=== PATIENT | male | born 1985 | race Caucasian/White ===

== ENCOUNTER → 2024-02-06 09:37 | Outpatient (REF) | payer BC, SELFPAY ==
--- NOTE | 2024-02-06 13:22 | EEG.RPT ---
Electroencephalogram Report
Recording
Date of EE02/06/24
Type of EEG: Routine
Length of EEG recordin mins
Done with Video Recording: Yes
Patient Status: Outpatient
Recording Conditions: Awake
Hyperventilation Performed: Yes
Photic Stimulation Performed: Yes
Report
METHODS
A 21 channel digitized electroencephalogram was performed at [facility]. The 10/20 international system of electrode placement was used. In addition to EEG, the patient was monitored for EKG. The duration of the recording was 65 minutes.
BACKGROUND
During the awake state, with the eyes closed, the background consisted of a normal amplitude, 11 Hertz posterior reactive rhythm that attenuated appropriately with eye opening. Beta activity was distributed diffusely with an anterior predominance.
There was a normal anterior-posterior voltage gradient. With eye opening the background activity changed to a low voltage mixture of alpha, beta, and occasional theta range frequencies. There were no significant asymmetries of background activity
noted.
HYPERVENTILATION
Hyperventilation resulted in no of the background activity but no appearance of abnormal activity.
PHOTIC STIMULATION
Photic stimulation using a step-skelton increase in photic frequency varying from 1-31 Hertz resulted in driving responses at various frequencies but no appearance of abnormal activity.
ABNORMAL EEG ACTIVITY
None
CLINICAL EVENTS
None
INTERPRETATION AND CLINICAL CORRELATION
This EEG is normal during the awake state as well as during the activation procedures of hyperventilation and photic stimulation. No seizures were noted during the recording. A normal EEG, in itself, does not rule out a diagnosis of epilepsy. If
clinical suspicion for seizure persists, a sleep-deprived and/or prolonged recording may be warranted.
== END ==
LOC: EEG 09:37
PROVIDERS: ATTENDING PHYSICIAN Psychiatry & Neurology Neurology; FAMILY PHYSICIAN Physician Assistant Medical
DX: R20.9 Unspecified disturbances of skin sensation (principal)
CPT/HCPCS: 95813

== ENCOUNTER 2024-03-22 20:29 | Emergency (ER) | payer BC, SELFPAY ==
[2024-03-22 20:47] VITALS: BP 112/80
[2024-03-22 20:55] VITALS: BMI 23.2
--- NOTE | 2024-03-22 20:57 | EDRN ---
Pt fell and hit R side of his head. Pt was in the bath, got up and felt nauseous and dizzy. Pt walked into the hallway 'next thing I knew I was on the floor and felt a huge lump on my head.' LOC less than 1 minute. Pt got up, walked into his
room and asked for help. Pt complains of head pain - no neck/back pain. Gait normal. No n/v, dizziness, visual disturbance. Pt feels 'woozy, dazed.'
[2024-03-22 21:03] VITALS: BP 108/78
--- NOTE | 2024-03-22 21:35 | ED.GENMED ---
History of Present Illness
General
Chief Complaint: Fainting/Passed Out
Source: patient
Exam Limitations: none
Time Seen by Provider: 03/22/24 21:24
Nursing documentation reviewed up to this point in time: agreed with
History of Present Illness
History of Present Illness:
Patient states he was sitting in hot bath for approx 30 minutes States he suddenly felt nauseated. He got out of tub and walked into vargas. States he then found self on floor. States he does not feel LOC was very long. Able to get self up,
ambulate to his room and call for help. Now complains of headache. He has a hematoma to his right forehead. Brought to ED by parents for eval. Denies fever/chills, n/v/d. No recent illness. Eating and drinking normally
Past History
Past History
ED Past Medical History: Psychiatric (Anxiety, ADHD, Depression, Panic attack) and Other (PE); Negative Asthma, HTN, Hypercholesterolemia or NIDDM
ED Past Surgical History: Orthopedic (Shoulder surgery) and Other (Bilateral inguinal hernia)
Social History
Tobacco: Former smoker
Alcohol: None
Personal: Single
Living: with family
Review of Systems
Review of Systems
Allergies reviewed?: Yes
All Other Systems: ROS reviewed and negative except as documented in HPI and ROS
Constitutional: Reports no symptoms
EENT: Reports no symptoms
Respiratory: Reports no symptoms
Cardiac: Reports no symptoms
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
: Reports no symptoms
Musculoskeletal: Reports neck pain
Skin: Reports other (hematoma to right forhead.)
Neurological: Reports headache
Psychiatric: Reports no symptoms
Phy Exam
General Physical Exam
General Presentation: well appearing and no apparent distress
General age: appears stated age
General Skin: warm and dry
General Habitus: normal
General Mental: alert
ENT Exam
ENT Exam: EOMI, TM's normal, neck supple and normocephalic
Eye Exam
Eye Exam: PERRL, EOMI and conjunctiva normal
Cardiovascular Exam
Cardiovascular Exam: regular rate/rhythm and no edema
Pulmonary Exam
Pulmonary Exam: lungs clear and no respiratory distress
Gastrointestinal Exam
Gastrointestinal Exam: normal bowel sounds, non tender, soft, no organomegaly and non distended
Neurological Exam
Neurological Exam: alert, oriented x3, CN II-XII intact, no motor deficits, no sensory deficits and speech normal
Ange Coma Scale
Eye Opening: Spontaneous
Verbal Response: Oriented
Motor Response: Obeys Commands
GCS Total Score: 15
Musculoskeletal Exam
Musculoskeletal Exam: full ROM and neuro vasc intact
Skin Exam
Skin Exam: normal color, warm/dry, no rash and other (large hematoma to right forehead.)
Psychiatric Exam
Psychiatric Exam: normal mood/affect
Course
Orders/Labs/Results
Orders:
Orders
03/22/24 20:49
Electrocardiogram (*1) Urgent
Reason for Study: Syncope
EKG- Treatment ONCE
03/22/24 21:33
Orthostatic VS- Treatment ONCE
03/22/24 21:34
CT Head W/o Iv Contrast Urgent
Comment:
Reason For Exam: trauma
Cervical Spine 4 or 5 Vw [CR Cervical Spine 4 Or 5 Vw] Urgent
Comment:
Reason For Exam: fall
03/22/24 21:50
Complete Blood Count/With Diff Urgent
Comprehensive Metabolic Panel Urgent
Abnormal Lab Results
03/22/24
21:50
RBC 3.71 L 10^6/uL
(4.70-6.10)
Hgb 12.7 L g/dL
(13.0-18.0)
Hct 34.6 L %
(39.0-52.0)
MCH 34.2 H pg
(27.0-31.0)
Absolute Monos (auto) 0.8 H 10^3/uL
(0.1-0.6)
Lymphocytes % 19.5 L %
(20.5-51.1)
Monocytes % 10.9 H %
(1.7-9.3)
BUN 22 H mg/dl
(9-20)
Glucose 108 H mg/dl
(70-99)
03/22/24 21:50
03/22/24 21:50
Vital Signs
Initial and Last Documented VS:
Initial Vital Signs
Temp Pulse Resp BP Pulse Ox
98.9 F 84 18 112/80 99
03/22/24 20:47 03/22/24 20:47 03/22/24 20:47 03/22/24 20:47 03/22/24 20:47
Last Documented Vital Signs
Temp Pulse Resp BP Pulse Ox
98.9 F 80 17 108/78 96
03/22/24 20:47 03/22/24 21:00 03/22/24 21:00 03/22/24 21:03 03/22/24 21:00
*Radiology
Radiology exam reviewed: radiology read reviewed
*Pulse Oximetry
Patient hypoxic: no
*Critical Care Note
Total Time (30-74mins, 75-104mins- exclusive of procedures): Not Applicable
ED Attending Note
-
Portions of this chart may have been created with voice recognition software.� Occasional wrong word or��sound alike� substitutions may have occurred due to the inherent limitations of voice recognition software.
Discharge Plan
Departure
Patient Disposition: Home (Routine Discharge)
Date of Disposition: 03/22/24
Time of Disposition: 22:27
Patient with high blood pressure during this ER visit?: No
Condition: Good
Covid-19: Not Applicable
Discharge Problem:
Head injury, Syncope
Instructions: Taking care of bruises, Head injury in adults, Syncope (Fainting) (DC)
Prescriptions:
No Action
melatonin 5 MG tablet
5 mg PO HSPRN PRN (Reason: Sleep)
gabapentin 900 mg Tablet Extended Release 24 Hr
900 mg PO TID
Referrals:
Dick Olguin MD [Family Provider] - Follow up in 2-3 days
Interventions
Interventions:
*Risk Screen - Suicide Last Done: 03/22/24 20:47
*General Assessment Last Done: 03/22/24 20:47
*Neglect/Abuse Screening Last Done: 03/22/24 20:47
ED- Fall Risk Assessment Last Done: 03/22/24 21:06
*ED COVID-19 Vaccine History Last Done: 03/22/24 22:37
*Nursing Disposition Last Done: 03/22/24 22:37
ED- Cardiac Assessment Last Done: 03/22/24 21:06
ED- Neurological Assessment Last Done: 03/22/24 21:06
Discharge Date and Time
Discharge Date/Time: 03/22/24 22:37
Print Language: LATVIAN
[2024-03-22 21:57] VITALS: BP 111/74; BP 112/78; BP 96/63; PULSE 81; PULSE 86
[2024-03-22 21:57] LABS: % Basophils 0.3 % (0-2); % Eosinophils 1.8 % (0-6); % Immature Granulocytes 0.3 % (0-0.5); % Lymphocytes 19.5 % (20.5-51.1); % Monocytes 10.9 % (1.7-9.3); % Neutrophils 67.2 % (42.2-75.2); Absolute Eosinophils 0.1 10^3/uL (0-0.7); Absolute Lymphocytes 1.5 10^3/uL (1.2-3.4); Absolute Monocytes 0.8 10^3/uL (0.1-0.6); Absolute Neutrophils 5.2 10^3/uL (1.4-6.5); Hematocrit 34.6 % (39.0-52.0); Hemoglobin 12.7 g/dL (13.0-18.0); Mean Corp Hgb Conc. 36.7 g/dL (33.0-37.0); Mean Corpuscular Hgb 34.2 pg (27.0-31.0); Mean Corpuscular Volume 93.3 fL (80.0-94.0); Mean Platelet Volume 9.2 fL (7.4-10.4); Nucleated Red Blood Cells % 0 % (-); Platelet Count 212 10^3/uL (130-400); Red Blood Cell Count 3.71 10^6/uL (4.70-6.10); Red Cell Dist. Width 11.6 % (11.5-14.5); White Blood Cell Count 7.7 10^3/uL (4.8-10.8)
[2024-03-22 22:20] LABS: ALT (SGPT) 18 U/L (0-50); AST (SGOT) 22 U/L (17-59); Albumin 4.4 g/dl (3.5-5.0); Alkaline Phosphatase 42 U/L (38-126); Blood Urea Nitrogen 22 mg/dl (9-20); Calcium 9.4 mg/dl (8.4-10.2); Carbon Dioxide 26 mmol/L (22-30); Chloride 103 mmol/L (98-107); Estimated Creatinine Clearance 119 ml/min; Glucose 108 mg/dl (70-99); Potassium 4.2 mmol/L (3.5-5.1); Sodium 139 mmol/L (135-145); Total Bilirubin 0.5 mg/dl (0.2-1.3); Total Protein 6.7 g/dl (6.3-8.2); eGFR > 60.00
== END 2024-03-22 22:37 | disposition home or self-care (01) ==
LOC: EMR 20:29
PROVIDERS: Nurse Practitioner; EMERGENCY PHYSICIAN Emergency Medicine; FAMILY PHYSICIAN Family Medicine
DX: R55 Syncope and collapse (principal); S09.90XA Unspecified injury of head, initial encounter; W19.XXXA Unspecified fall, initial encounter; Z87.891 Personal history of nicotine dependence
CPT/HCPCS: 99285; 70450; 72050; 80053; 85025; 93005

== ENCOUNTER 2024-03-28 15:28 | Emergency (ER) | payer BC, SELFPAY ==
[2024-03-28 15:29] VITALS: BP 121/83
[2024-03-28 15:40] VITALS: BP 127/88
[2024-03-28 15:55] VITALS: BMI 22.9
[2024-03-28 16:00] VITALS: BP 101/73
[2024-03-28 16:12] LABS: % Basophils 0.2 % (0-2); % Eosinophils 2.1 % (0-6); % Immature Granulocytes 0.2 % (0-0.5); % Monocytes 9.6 % (1.7-9.3); % Neutrophils 57.9 % (42.2-75.2); Absolute Eosinophils 0.1 10^3/uL (0-0.7); Absolute Lymphocytes 1.5 10^3/uL (1.2-3.4); Absolute Monocytes 0.5 10^3/uL (0.1-0.6); Hematocrit 34.5 % (39.0-52.0); Hemoglobin 12.4 g/dL (13.0-18.0); Mean Corp Hgb Conc. 35.9 g/dL (33.0-37.0); Mean Corpuscular Hgb 33.1 pg (27.0-31.0); Mean Platelet Volume 9.4 fL (7.4-10.4); Nucleated Red Blood Cells % 0 % (-); Platelet Count 229 10^3/uL (130-400); Red Blood Cell Count 3.75 10^6/uL (4.70-6.10); Red Cell Dist. Width 11.3 % (11.5-14.5); White Blood Cell Count 5.1 10^3/uL (4.8-10.8)
--- NOTE | 2024-03-28 16:12 | ED.GENMED ---
History of Present Illness
General
Chief Complaint: Breathing Problem
Time Seen by Provider: 03/28/24 15:34
History of Present Illness
History of Present Illness:
38-year-old male history of thoracic outlet syndrome presenting to the emergency department for chest pain and shortness of breath. Patient reports symptoms started yesterday. He was previously diagnosed with thoracic outlet syndrome on the right
side, and suffered of a pulmonary embolism. He had been on Xarelto, however taken off the medication his doctor. He recently followed up with a thoracic outlet syndrome specialist this past week, was diagnosed with thoracic outlet syndrome on the
left as well. For this reason, he was restarted on Xarelto 2 days ago. He saw the physician on and symptoms started following day, yesterday. Notes some dyspnea on exertion and some left-sided chest pain. Denies any known cardiac issues
or family history of cardiac disease. Denies fever, cough, systemic symptoms. Denies additional acute medical complaints.
Past History
Past History
ED Past Medical History: Psychiatric (Anxiety, ADHD, Depression, Panic attack) and Other (PE); Negative Asthma, HTN, Hypercholesterolemia or NIDDM
ED Past Surgical History: Orthopedic (Shoulder surgery) and Other (Bilateral inguinal hernia)
Social History
Tobacco: Former smoker
Alcohol: None
Personal: Single
Living: with family
Phy Exam
Physical Exam
Physical Exam:
General: Well-appearing, no clinical signs of dehydration, nontoxic and in no acute distress
HEENT: protecting airway
Neck: appears supple
CV: Normal heart rate, regular rhythm, no evidence of cyanosis
Resp: No accessory muscle use, no increased work of breathing, lungs clear to auscultation bilaterally
Abd: Soft and non-distended, no tenderness to palpation
Extremities: No deformities, no swelling, no erythema
Neuro: alert, no focal neurologic deficit
: deferred
Rectal: deferred
Psych: Normal affect
Skin: Intact
Course
Orders/Labs/Results
Orders:
Orders
03/28/24 15:32
ECG [Electrocardiogram (*1)] Urgent
Reason for Study: Shortness of Breath
EKG- Treatment ONCE
03/28/24 15:54
CT Chest Pe Study Urgent
Comment:
Reason For Exam: SOB, CP, hx of thoracic outlet and PE
03/28/24 16:05
Complete Blood Count/With Diff Urgent
Comprehensive Metabolic Panel Urgent
PTT Urgent
Prothrombin Time Urgent
Troponin I Urgent
Abnormal Lab Results
03/28/24
16:05
RBC 3.75 L 10^6/uL
(4.70-6.10)
Hgb 12.4 L g/dL
(13.0-18.0)
Hct 34.5 L %
(39.0-52.0)
MCH 33.1 H pg
(27.0-31.0)
RDW 11.3 L %
(11.5-14.5)
Monocytes % 9.6 H %
(1.7-9.3)
PT 20.0 H Sec
(11.4-14.6)
APTT 37.0 H Sec
(23.4-35.0)
03/28/24 16:05
03/28/24 16:05
Vital Signs
Initial and Last Documented VS:
Initial Vital Signs
Temp Pulse Resp BP Pulse Ox
98.2 F 98 20 121/83 97
03/28/24 15:29 03/28/24 15:29 03/28/24 15:29 03/28/24 15:29 03/28/24 15:29
Last Documented Vital Signs
Temp Pulse Resp BP Pulse Ox
98.2 F 80 10 101/73 98
03/28/24 15:29 03/28/24 16:00 03/28/24 16:00 03/28/24 16:00 03/28/24 16:00
MDM/Problems Addressed
MDM/Problems Addressed:
38-year-old male with history of thoracic outlet syndrome and PE presenting for shortness of breath and chest pain. Vital signs are normal.
On exam patient is very well-appearing, no acute distress or discomfort. Patient's primary concern is for repeat pulmonary embolism, feels similarly to when he previously had a PE several years ago. He was recently restarted on Xarelto yesterday
by his thoracic outlet syndrome specialist. EKG obtained, nonischemic, no arrhythmia. Lower suspicion for ACS, absence of any ACS risk factors. Patient is high risk for PE given prior history. There is visible obtain CT chest. Will also obtain
laboratory analysis and continue to monitor
17:45 -patient's labs are unremarkable. Normal troponin. CT of the chest without evidence of PE. Patient otherwise remains hemodynamically stable. At this time feel that he is stable for discharge with continued interval follow-up with his
thoracic outlet doctor. Patient agreeable to plan. Return precautions discussed and patient verbalized understanding.
*EKG
Interpreted by ED Provider?: Yes
EKG Intrepretation Date: 03/28/24
EKG Intrepretation Time: 16:15
Interpretation: normal
Heart Rate: 89
Rate: normal
Rhythm: sinus
[place]: normal axis
Interval: normal interval
QRS Pattern: normal QRS
Ischemia: no ischemia
*Critical Care Note
Total Time (30-74mins, 75-104mins- exclusive of procedures): Not Applicable
ED Attending Note
-
Portions of this chart may have been created with voice recognition software.� Occasional wrong word or��sound alike� substitutions may have occurred due to the inherent limitations of voice recognition software.
Discharge Plan
Departure
Prescriptions:
No Action
melatonin 5 MG tablet
5 mg PO HSPRN PRN (Reason: Sleep)
gabapentin 900 mg Tablet Extended Release 24 Hr
900 mg PO TID
Referrals:
Dick Olguin MD [Family Provider] -
Interventions
Interventions:
*Risk Screen - Suicide Last Done: 03/28/24 15:29
*General Assessment Last Done: 03/28/24 15:29
*Neglect/Abuse Screening Last Done: 03/28/24 15:29
ED- Fall Risk Assessment Last Done: 03/28/24 15:55
*ED COVID-19 Vaccine History Last Done: 03/28/24 15:55
ED- Cardiac Assessment Last Done: 03/28/24 15:55
ED- Pulmonary Assessment Last Done: 03/28/24 15:55
Discharge Date and Time
Print Language: DANISH
[2024-03-28 16:23] LABS: INR 1.72
[2024-03-28 16:37] LABS: ALT (SGPT) 16 U/L (0-50); AST (SGOT) 23 U/L (17-59); Albumin 4.5 g/dl (3.5-5.0); Alkaline Phosphatase 43 U/L (38-126); Blood Urea Nitrogen 15 mg/dl (9-20); Calcium 9.4 mg/dl (8.4-10.2); Carbon Dioxide 22 mmol/L (22-30); Chloride 103 mmol/L (98-107); Estimated Creatinine Clearance > 125 ml/min; Glucose 83 mg/dl (70-99); Potassium 3.9 mmol/L (3.5-5.1); Sodium 140 mmol/L (135-145); Total Bilirubin 0.7 mg/dl (0.2-1.3); Total Protein 6.8 g/dl (6.3-8.2); eGFR > 60.00
[2024-03-28 16:40] LABS: Troponin I < 0.012 ng/ml
== END 2024-03-28 18:24 | disposition home or self-care (01) ==
LOC: EMR 15:28
PROVIDERS: EMERGENCY PHYSICIAN Student in an Organized Health Care Education/Training Program; FAMILY PHYSICIAN Family Medicine
DX: R07.89 Other chest pain (principal); R06.02 Shortness of breath; G54.0 Brachial plexus disorders; F41.9 Anxiety disorder, unspecified; F90.9 Attention-deficit hyperactivity disorder, unspecified type; Z79.01 Long term (current) use of anticoagulants; Z86.711 Personal history of pulmonary embolism; Z87.891 Personal history of nicotine dependence
CPT/HCPCS: 99284; 71275; 80053; 84484; 85025; 85610; 85730; 93005; Q9967